=== PATIENT | male | born 1960 | race Caucasian/White ===

== ENCOUNTER 2024-10-07 07:57 | Outpatient (CLI) | payer OTHER ==
[~2024-10-07] VITALS: Ht 180.3 cm; Wt 93.0 kg
[2024-10-07] MEDS: albuterol 2.5 MG/3 ML nebule NEB PRN (08:42)
[2024-10-07 08:43] VITALS: PULSE 85; RESP 16; O2SAT 98
[2024-10-07 09:05] VITALS: PULSE 83; RESP 16
== END 2024-10-07 23:59 | disposition home or self-care (01) ==
LOC: RT 07:57
PROVIDERS: ATTEND Chiropractor
DX: I08.0 Rheumatic disorders of both mitral and aortic valves (principal); I25.9 Chronic ischemic heart disease, unspecified; R05.3 Chronic cough
CPT/HCPCS: 71046; 93306; 94060; 94760; J7120